=== PATIENT | female | born 1965 | race Caucasian/White ===

== ENCOUNTER 2016-04-30 18:57 | Emergency (ER) | payer MEDICAID ==
[~2016-04-30] VITALS: Ht 165.1 cm; Wt 65.9 kg
[2016-04-30] MEDS ORDERED: VIST50 PO (19:37)
[2016-04-30 20:05] LABS: BASOPHILS % (AUTO) 0.3 % (0.0-2.0); EOSINOPHILS % (AUTO) 0.8 % (1.0-6.0); HEMATOCRIT 37.5 % (36-46); HEMOGLOBIN 12.5 g/dL (12.0-16.0); LYMPHOCYTES # (AUTO) 1.7 K/uL (1.0-4.8); LYMPHOCYTES % (AUTO) 23.8 % (22.0-44.0); MEAN CORPUSCULAR HGB CONC 33.3 G/dL (31.0-37.0); MEAN CORPUSCULAR VOLUME 90 fL (80-100); MONOCYTES # (AUTO) 0.4 K/uL (0.1-1.0); MONOCYTES % (AUTO) 6.1 % (2.0-9.0); PLATELET COUNT (AUTO) 222 K/uL (150-450); RED BLOOD CELL COUNT(AUTO) 4.16 MIL/uL (4.00-5.20); RED CELL DISTRIBUTION WIDTH 12.6 % (11.5-14.5); WHITE BLOOD COUNT (AUTO) 7.3 K/uL (4.5-11.0)
[2016-04-30 20:16] LABS: ANION GAP 6 mmol/L (8-16); CALCIUM, TOTAL 8.8 mg/dL (8.8-10.5); CARBON DIOXIDE 28 mmol/L (22-29); CHLORIDE 105 mmol/L (98-107); CREATININE 0.76 mg/dL (0.60-1.30); GLOMERULAR FILTR. RATE CALC > 60 mL/min (>60); POTASSIUM 3.7 mmol/L (3.5-5.1); SODIUM SERUM 139 mmol/L (136-145); UREA NITROGEN, BLOOD 11 mg/dL (7-18)
[2016-04-30 20:21] LABS: ALANINE AMINOTRANSFERASE 23 U/L (12-78); ALBUMIN 3.7 g/dL (3.4-5.0); ASPARTATE AMINOTRANSFERASE 21 U/L (15-37); BILIRUBIN,TOTAL 0.2 mg/dL (0.1-1.0); TOTAL PROTEIN, SERUM 7.3 g/dL (6.4-8.2)
[2016-04-30] MEDS ORDERED: ClonazePAM 1 MG TABLET PO ONE (23:45)
[2016-04-30 23:52] VITALS: BP 115/72
== END 2016-04-30 23:56 | disposition home or self-care (01) ==
LOC: EEVIPCON 19:03 → EMS 19:03
DX: F20.0 Paranoid schizophrenia (principal); Z88.1 Allergy status to other antibiotic agents; Z88.2 Allergy status to sulfonamides
CPT/HCPCS: 36415; 80053; 80307; 85025; 99284; G0480

== ENCOUNTER 2016-05-21 14:00 | Inpatient (IN) | payer MEDICAID ==
[~2016-05-21] VITALS: Ht 160 cm; Wt 63.0 kg
[~2016-05-21 14:00] MED LIST: VIST50 PO
[2016-05-21] MEDS ORDERED: LORazepam 2 MG TABLET PO PRN (15:30)
[2016-05-21] MEDS ORDERED: HALOPERIDOL 5 MG TABLET PO PRN (15:30)
[2016-05-21] MEDS ORDERED: ZOLPIDEM TARTRATE 10 MG TABLET PO PRN (15:30)
[2016-05-21 16:06] VITALS: BP 100/56
[2016-05-21] MEDS ORDERED: PNEUMOCOCCAL VACCINE POLYVALENT 0.5 ML VIAL [PPSV23] IM ONE (16:45)
[2016-05-21] MEDS ORDERED: INFLUENZA VIRUS VACCINE QVS 2016-17 (3YR+)/PF 60 MCG/0.5 ML SYRINGE IM ONE (16:45)
[2016-05-21 17:46] VITALS: BP 108/67
[2016-05-22 08:19] VITALS: BP 117/71
[2016-05-22 08:24] LABS: BASOPHILS % (AUTO) 0.4 % (0.0-2.0); EOSINOPHILS % (AUTO) 1.8 % (1.0-6.0); HEMATOCRIT 36.7 % (36-46); LYMPHOCYTES # (AUTO) 1.6 K/uL (1.0-4.8); LYMPHOCYTES % (AUTO) 31.5 % (22.0-44.0); MEAN CORPUSCULAR HEMOGLOBIN 29.7 pg (26.0-34.0); MEAN CORPUSCULAR HGB CONC 32.7 G/dL (31.0-37.0); MEAN CORPUSCULAR VOLUME 91 fL (80-100); MONOCYTES # (AUTO) 0.5 K/uL (0.1-1.0); MONOCYTES % (AUTO) 8.8 % (2.0-9.0); NEUTROPHILS % (AUTO) 57.5 % (40.0-70.0); PLATELET COUNT (AUTO) 196 K/uL (150-450); RED BLOOD CELL COUNT(AUTO) 4.04 MIL/uL (4.00-5.20); WHITE BLOOD COUNT (AUTO) 5.2 K/uL (4.5-11.0)
[2016-05-22 08:47] LABS: ALANINE AMINOTRANSFERASE 22 U/L (12-78); ALBUMIN 3.3 g/dL (3.4-5.0); ANION GAP 10 mmol/L (8-16); ASPARTATE AMINOTRANSFERASE 13 U/L (15-37); BILIRUBIN,TOTAL 0.2 mg/dL (0.1-1.0); CALCIUM, TOTAL 8.5 mg/dL (8.8-10.5); CARBON DIOXIDE 27 mmol/L (22-29); CHLORIDE 107 mmol/L (98-107); CHOL/HDL RATIO 2.9 (3.9-5.7); CREATININE 0.66 mg/dL (0.60-1.30); GLOMERULAR FILTR. RATE CALC > 60 mL/min (>60); SODIUM SERUM 144 mmol/L (136-145); TOTAL PROTEIN, SERUM 6.9 g/dL (6.4-8.2); UREA NITROGEN, BLOOD 13 mg/dL (7-18)
[2016-05-22 16:09] VITALS: BP 112/62
[2016-05-22] MEDS ORDERED: ACETAMINOPHEN 325 MG TABLET PO PRN (17:15)
[2016-05-22] MEDS ORDERED: IBUPROFEN 400 MG TABLET PO PRN (17:15)
[2016-05-23 06:30] VITALS: BP 111/69
[2016-05-23 10:52] VITALS: BP 118/62
[2016-05-23 16:07] VITALS: BP 123/71
[2016-05-23] MEDS ORDERED: RisperiDONE 1 MG TABLET PO SCH (21:00)
[2016-05-24 06:43] VITALS: BP 106/69
[2016-05-24 08:34] VITALS: BP 100/55
[2016-05-24] MEDS ORDERED: SERTRALINE HCL 50 MG TABLET PO SCH (09:00)
[2016-05-24] MEDS ORDERED: RISP1 PO (09:02)
[2016-05-24] MEDS ORDERED: SERT50TA12 PO (09:03)
== END 2016-05-24 13:00 | disposition home or self-care (01) | DRG 751 ==
LOC: B3A 16:00 → B2S 05-24 10:38
DX: F33.2 Major depressive disorder, recurrent severe without psychotic features (principal); E46 Unspecified protein-calorie malnutrition; R45.851 Suicidal ideations; F20.9 Schizophrenia, unspecified; E83.51 Hypocalcemia; F10.10 Alcohol abuse, uncomplicated; Z28.21 Immunization not carried out because of patient refusal; Z79.899 Other long term (current) drug therapy; Z88.2 Allergy status to sulfonamides; Z88.8 Allergy status to other drugs, medicaments and biological substances; Z88.1 Allergy status to other antibiotic agents; Z71.41 Alcohol abuse counseling and surveillance of alcoholic; F29 Unspecified psychosis not due to a substance or known physiological condition
CPT/HCPCS: 84436; 84439; 84443

== ENCOUNTER 2016-07-10 10:52 | Inpatient (IN) | payer MEDICAID ==
[~2016-07-10] VITALS: Ht 160 cm; Wt 63.5 kg
[~2016-07-10 10:52] MED LIST changes: +RISP1 PO; +SERT50TA12 PO; -VIST50 PO
[2016-07-10 13:07] VITALS: BP 110/69
[2016-07-10] MEDS ORDERED: ZOLPIDEM TARTRATE 10 MG TABLET PO PRN (14:00)
[2016-07-10] MEDS ORDERED: HALOPERIDOL 5 MG TABLET PO PRN (14:00)
[2016-07-10] MEDS ORDERED: LORazepam 2 MG TABLET PO PRN (14:00)
[2016-07-10 15:10] VITALS: BP 104/76
[2016-07-10] MEDS: SERTRALINE HCL 50 MG TABLET PO SCH (15:51)
[2016-07-10 16:04] VITALS: BP 108/65
[2016-07-10] MEDS: RisperiDONE 1 MG TABLET PO SCH (20:43)
[2016-07-10] MEDS ORDERED: ACETAMINOPHEN 325 MG TABLET PO PRN (21:30)
[2016-07-10] MEDS ORDERED: IBUPROFEN 400 MG TABLET PO PRN (21:30)
[2016-07-11] MEDS: SERTRALINE HCL 50 MG TABLET PO SCH (08:05)
[2016-07-11 08:33] LABS: BASOPHILS % (AUTO) 0.4 % (0.0-2.0); EOSINOPHILS % (AUTO) 2.3 % (1.0-6.0); HEMATOCRIT 36.9 % (36-46); HEMOGLOBIN 12.3 g/dL (12.0-16.0); LYMPHOCYTES # (AUTO) 1.5 K/uL (1.0-4.8); LYMPHOCYTES % (AUTO) 28.2 % (22.0-44.0); MEAN CORPUSCULAR HEMOGLOBIN 29.9 pg (26.0-34.0); MEAN CORPUSCULAR HGB CONC 33.2 G/dL (31.0-37.0); MEAN CORPUSCULAR VOLUME 90 fL (80-100); MONOCYTES # (AUTO) 0.4 K/uL (0.1-1.0); NEUTROPHILS # (AUTO) 3.2 K/uL (1.8-7.7); NEUTROPHILS % (AUTO) 61.1 % (40.0-70.0); PLATELET COUNT (AUTO) 161 K/uL (150-450); RED CELL DISTRIBUTION WIDTH 12.9 % (11.5-14.5); WHITE BLOOD COUNT (AUTO) 5.2 K/uL (4.5-11.0)
[2016-07-11 08:58] LABS: ALANINE AMINOTRANSFERASE 21 U/L (12-78); ALBUMIN 3.3 g/dL (3.4-5.0); ANION GAP 8 mmol/L (8-16); ASPARTATE AMINOTRANSFERASE 22 U/L (15-37); BILIRUBIN,TOTAL 0.4 mg/dL (0.1-1.0); CALCIUM, TOTAL 8.3 mg/dL (8.8-10.5); CARBON DIOXIDE 28 mmol/L (22-29); CHLORIDE 108 mmol/L (98-107); CHOL/HDL RATIO 3.5 (3.9-5.7); CREATININE 0.55 mg/dL (0.60-1.30); GLOMERULAR FILTR. RATE CALC > 60 mL/min (>60); SODIUM SERUM 144 mmol/L (136-145); THYROID STIMULATING HORMONE 2.22 uIU/mL (0.36-3.74); TOTAL PROTEIN, SERUM 6.4 g/dL (6.4-8.2); UREA NITROGEN, BLOOD 11 mg/dL (7-18)
[2016-07-11 16:23] VITALS: BP 106/64
[2016-07-11] MEDS: RisperiDONE 1 MG TABLET PO SCH (20:32)
[2016-07-12] MEDS: LEVOTHYROXINE SODIUM 25 MCG TABLET PO SCH (06:41)
[2016-07-12 08:04] VITALS: BP 121/61
[2016-07-12] MEDS: SERTRALINE HCL 50 MG TABLET PO SCH (08:33)
[2016-07-12 16:00] VITALS: BP 117/77
[2016-07-12] MEDS: RisperiDONE 1 MG TABLET PO SCH (20:18)
[2016-07-13] MEDS: LEVOTHYROXINE SODIUM 25 MCG TABLET PO SCH (06:16)
[2016-07-13 08:30] VITALS: BP 119/67
[2016-07-13] MEDS: SERTRALINE HCL 50 MG TABLET PO SCH (08:45)
[2016-07-13 16:09] VITALS: BP 127/72
[2016-07-13] MEDS: RisperiDONE 1 MG TABLET PO SCH (20:58)
[2016-07-14 06:30] VITALS: BP 122/70
[2016-07-14] MEDS: LEVOTHYROXINE SODIUM 25 MCG TABLET PO SCH (06:42)
[2016-07-14 08:15] VITALS: BP 112/78
[2016-07-14] MEDS: SERTRALINE HCL 50 MG TABLET PO SCH (08:43)
[2016-07-14 16:05] VITALS: BP 130/63
[2016-07-14] MEDS: RisperiDONE 1 MG TABLET PO SCH (20:20)
[2016-07-15] MEDS: LEVOTHYROXINE SODIUM 25 MCG TABLET PO SCH (06:12)
[2016-07-15 06:45] VITALS: BP 120/70
[2016-07-15] MEDS: SERTRALINE HCL 50 MG TABLET PO SCH (08:11)
[2016-07-15 08:19] VITALS: BP 117/57
[2016-07-15 16:15] VITALS: BP 118/63
[2016-07-15] MEDS: RisperiDONE 1 MG TABLET PO SCH (20:07)
[2016-07-16] MEDS: LEVOTHYROXINE SODIUM 25 MCG TABLET PO SCH (06:32)
[2016-07-16 07:09] VITALS: BP 115/72
[2016-07-16 08:20] VITALS: BP 98/55
[2016-07-16] MEDS: SERTRALINE HCL 50 MG TABLET PO SCH (09:00)
[2016-07-16 16:04] VITALS: BP 108/65
[2016-07-16] MEDS: RisperiDONE 1 MG TABLET PO SCH (20:20)
[2016-07-17 06:02] VITALS: BP 104/60
[2016-07-17] MEDS: LEVOTHYROXINE SODIUM 25 MCG TABLET PO SCH (06:19)
[2016-07-17 08:18] VITALS: BP 105/62
[2016-07-17] MEDS: SERTRALINE HCL 50 MG TABLET PO SCH (08:32)
[2016-07-17 16:18] VITALS: BP 132/86
[2016-07-17] MEDS: RisperiDONE 1 MG TABLET PO SCH (20:22)
[2016-07-18] MEDS: LEVOTHYROXINE SODIUM 25 MCG TABLET PO SCH (06:09)
[2016-07-18 06:16] VITALS: BP 100/64
[2016-07-18] MEDS ORDERED: LEVO25TA9 PO (07:33)
[2016-07-18] MEDS: SERTRALINE HCL 50 MG TABLET PO SCH (08:31)
[2016-07-18 08:33] VITALS: BP 107/63
== END 2016-07-18 13:10 | disposition home or self-care (01) | DRG 751 ==
LOC: EDSTATUS 14:00 → B3A 14:46
DX: F33.3 Major depressive disorder, recurrent, severe with psychotic symptoms (principal); G71.0 Muscular dystrophy; F19.10 Other psychoactive substance abuse, uncomplicated; F20.0 Paranoid schizophrenia; F41.0 Panic disorder [episodic paroxysmal anxiety]; R45.851 Suicidal ideations; F41.9 Anxiety disorder, unspecified; F10.10 Alcohol abuse, uncomplicated; E03.9 Hypothyroidism, unspecified; Z79.899 Other long term (current) drug therapy; Z91.14 Patient's other noncompliance with medication regimen; Z88.2 Allergy status to sulfonamides; Z88.8 Allergy status to other drugs, medicaments and biological substances; Z71.51 Drug abuse counseling and surveillance of drug abuser; Z71.41 Alcohol abuse counseling and surveillance of alcoholic
CPT/HCPCS: 83036; 84439; 84443